=== PATIENT | male | born 1935 | race Caucasian/White ===

== ENCOUNTER → 2023-11-02 09:57 | Outpatient (REF) | payer OTHER, SELFPAY | LOC: HWRAD 09:57 | PROVIDERS: ATTENDING PHYSICIAN Family Medicine | DX: R79.89 Other specified abnormal findings of blood chemistry (principal) | CPT/HCPCS: 76700 ==

== ENCOUNTER 2024-02-15 21:57 | Inpatient (IN) | payer OTHER, SELFPAY ==
[2024-02-15 18:33] VITALS: BP 178/88
[2024-02-15 19:08] LABS: % Basophils 0.8 % (0-2); % Eosinophils 1.8 % (0-6); % Immature Granulocytes 0.2 % (0-0.5); % Lymphocytes 20.9 % (20.5-51.1); % Monocytes 9.5 % (1.7-9.3); % Neutrophils 66.8 % (42.2-75.2); Absolute Basophils 0.1 10^3/uL (0-0.2); Absolute Eosinophils 0.1 10^3/uL (0-0.7); Absolute Lymphocytes 1.3 10^3/uL (1.2-3.4); Absolute Monocytes 0.6 10^3/uL (0.1-0.6); Hematocrit 38.2 % (39.0-52.0); Hemoglobin 12.8 g/dL (13.0-18.0); Mean Corp Hgb Conc. 33.5 g/dL (33.0-37.0); Mean Corpuscular Hgb 33.2 pg (27.0-31.0); Mean Corpuscular Volume 99.2 fL (80.0-94.0); Mean Platelet Volume 10.4 fL (7.4-10.4); Nucleated Red Blood Cells % 0 % (-); Platelet Count 134 10^3/uL (130-400); Red Blood Cell Count 3.85 10^6/uL (4.70-6.10); Red Cell Dist. Width 13.8 % (11.5-14.5)
[2024-02-15 19:10] LABS: INR 1.24; PT 16.1 Sec (11.4-14.6)
[2024-02-15 19:19] LABS: ALT (SGPT) 79 U/L (0-50); AST (SGOT) 40 U/L (17-59); Albumin 4.1 g/dl (3.5-5.0); Alkaline Phosphatase 89 U/L (38-126); Blood Urea Nitrogen 37 mg/dl (9-20); Calcium 9.1 mg/dl (8.4-10.2); Carbon Dioxide 20 mmol/L (22-30); Chloride 107 mmol/L (98-107); Glucose 102 mg/dl (70-99); Potassium 4.3 mmol/L (3.5-5.1); Sodium 140 mmol/L (135-145); Total Bilirubin 0.8 mg/dl (0.2-1.3); Total Protein 6.6 g/dl (6.3-8.2); eGFR 36.21
[2024-02-15 19:25] LABS: NT-proBNP 3420 pg/ml; Troponin I 0.023 ng/ml
[2024-02-15 19:44] VITALS: BP 163/71; BMI 30.6
[2024-02-15 20:00] VITALS: BP 175/82
--- NOTE | 2024-02-15 20:20 | ED.GENMED ---
History of Present Illness
General
Chief Complaint: Breathing Problem
Source: patient
Exam Limitations: none
Time Seen by Provider: 02/15/24 19:21
History of Present Illness
History of Present Illness:
This is a 88 year old male that comes in with c/o increased weight gain and SOB. States that he went to the PCP today as he had gained 15 pounds of fluid. States that he started to go up on Thursday or . Thursday they called the PCP and today
he went to see the PCP. Patient was told to come to the ER for further evaluation. Staets that he is SOB and that his legs are swollen to his thighs. Denies any fever, chills, chest pain, abd pain, nausea, vomiting, diarrhea, headache, dizziness,
urinary burning.
Past History
Past History
ED Past Medical History: Arrthythmia (Atrial fib), HTN, Hypercholesterolemia, IDDM and Hypothyroidism
ED Past Surgical History: Cardiac (Pacemaker, 2 stents) and Cholecystectomy
Social History
Tobacco: Non-smoker
Alcohol: None
Personal:
Living: with family
Review of Systems
Review of Systems
All Other Systems: ROS reviewed and negative except as documented in HPI and ROS
Constitutional: Reports no symptoms; Denies fever or chills
EENT: Reports no symptoms
Respiratory: Reports trouble breathing; Denies cough
Cardiac: Reports no symptoms; Denies chest pain
ABD/GI: Reports no symptoms; Denies abdominal pain, nausea, vomiting or diarrhea
: Reports no symptoms; Denies dysuria, frequency or urgency
Musculoskeletal: Reports edema (Bilateral legs )
Skin: Reports no symptoms
Neurological: Reports no symptoms; Denies dizzy or headache
Psychiatric: Reports no symptoms
Phy Exam
General Physical Exam
General Presentation: no apparent distress
General age: appears stated age
General Skin: warm and dry
General Habitus: elderly
General Mental: alert
General Hydration: dry mucous membranes
ENT Exam
ENT Exam: TM's normal, pharynx normal and neck supple
Eye Exam
Eye Exam: EOMI
Cardiovascular Exam
Cardiovascular Exam: normal peripheral pulses and pacemaker
Pulmonary Exam
Pulmonary Exam: no respiratory distress, chest non tender, no rhonchi, no wheezing, no cough and other (Very fine rales at bases)
Gastrointestinal Exam
Gastrointestinal Exam: normal bowel sounds, non tender, soft, no organomegaly, no pulsatile mass and non distended
Musculoskeletal Exam
Musculoskeletal Exam: full ROM and edema (Pitting edema +2 from feet into the thighs)
Skin Exam
Skin Exam: normal color, warm/dry and no petechia
Psychiatric Exam
Psychiatric Exam: normal mood/affect
Scores
Heart Failure Risk
Heart Failure Risk Score: Yes
History of Stroke or TIA: No
History of intubation for respiratory distress: No
Heart rate on ED arrival >/= 110: No
SaO2 <90% on arrival on room air: No
HR >/=110 during 3min walk test (or too ill to perform test): Yes
ECG has acute ischemic changes: No
Urea >/=12mmol/L (BUN 33.6mg/dL): Yes
Serum CO2>/=35mmol/L: No
Troponin I or T elevated to [place] Level (0.4mg/dL): No
NT-proBNP >/=5,000ng/L (5,000pg/ml): No
HF Risk Score: 3
Admission Status: HIGH RISK 15.9% Consider SNF treatment or admission to hospital
Course
Orders/Labs/Results
Orders:
Orders
02/15/24 18:42
Electrocardiogram (*1) Urgent
Reason for Study: Shortness of Breath
EKG- Treatment ONCE
CXR2 [CR Chest - 2 Views ] Urgent
Comment:
Reason For Exam: sob
02/15/24 18:51
Complete Blood Count/With Diff Urgent
Comprehensive Metabolic Panel Urgent
NT-proBNP Urgent
PT/INR [Prothrombin Time] Urgent
Troponin I Urgent
02/15/24 20:29
Furosemide [Lasix] 40 mg IV NOW STA
Abnormal Lab Results
02/15/24
18:51
RBC 3.85 L 10^6/uL
(4.70-6.10)
Hgb 12.8 L g/dL
(13.0-18.0)
Hct 38.2 L %
(39.0-52.0)
MCV 99.2 H fL
(80.0-94.0)
MCH 33.2 H pg
(27.0-31.0)
Monocytes % 9.5 H %
(1.7-9.3)
PT 16.1 H Sec
(11.4-14.6)
Carbon Dioxide 20 L mmol/L
(22-30)
BUN 37 H mg/dl
(9-20)
Creatinine 1.8 H mg/dL
(0.7-1.3)
Glucose 102 H mg/dl
(70-99)
ALT 79 H U/L
(0-50)
02/15/24 18:51
02/15/24 18:51
H/H slightly low. Aemia, PT 16.1 with INR 1.24, Carbon dioxide slightly low. Chronic renal insufficiency according to patient, Glucose nonfasting, ALT elevation. Troponin 0.023, Pro-BNP 3420 (no other labs for compare with)
Vital Signs
Initial and Last Documented VS:
Initial Vital Signs
Temp Pulse Resp BP Pulse Ox
98.0 F 69 16 178/88 98
02/15/24 18:33 02/15/24 18:33 02/15/24 18:33 02/15/24 18:33 02/15/24 18:33
Last Documented Vital Signs
Temp Pulse Resp BP Pulse Ox
98.0 F 82 15 175/82 96
02/15/24 18:33 02/15/24 20:00 02/15/24 20:00 02/15/24 20:00 02/15/24 20:00
MDM/Problems Addressed
Differential Diagnosis Includes:
CHF
MDM/Problems Addressed:
This is a 88 year old male that comes in with c/o increased weight gain of 15 pounds with bilateral leg swelling. States that the PCP also heard rales and sent him in for further evaluation.
will get labs, chest x-ray
Back into see patient. Explained that he would be admitted. Explained that his chest X-ray shows extra fluid on the lungs with pleural effusions and with his bilateral leg edema, will admit patient for further treatment. Hospitalist notified.
Chronic conditions affecting care: CAD
Acute Exacerbation and/or Progression of Chronic Illness: CAD
*Radiology
Radiology exam reviewed: radiology read reviewed (Chest-Small to moderate-sized right and small left pleural effusions with adjacent compressive subsegmental atelectasis in the basilar segments of both lower lobes. Mild interstitial cardiogenic
pulmonary edema. Left-sided cardiac pacemaker in place)
*EKG
Interpreted by ED Provider?: Yes
Heart Rate: 78
Rate: normal
Rhythm: ventricular paced
*Vp Director Of Creative Strategy Interpretation
Rate: normal
Heart Rate: 76
Rhythm: ventricular paced and av sequential
*Critical Care Note
Total Time (30-74mins, 75-104mins- exclusive of procedures): Not Applicable
ED Attending Note
-
Portions of this chart may have been created with voice recognition software.� Occasional wrong word or��sound alike� substitutions may have occurred due to the inherent limitations of voice recognition software.
Discharge Plan
Departure
Patient Disposition: Admit
Date of Disposition: 02/15/24
Time of Disposition: 20:34
Admit to: Telemetry
Presentation/result/management discussed w/ accepting MD/DO: Hospitalist
Patient with high blood pressure during this ER visit?: Yes
Condition: Good
Covid-19: Not Applicable
Discharge Problem:
Pulmonary edema, Bilateral pleural effusion, Bilateral lower extremity edema
Prescriptions:
No Action
aspirin 325 mg Tablet
325 mg PO DAILY
allopurinol 100 mg Tablet
100 mg PO DAILY
tamsulosin 0.4 mg Capsule
0.4 mg PO HS
ferrous sulfate 325 mg (65 mg iron) Tablet
325 mg PO DAILY
levothyroxine [Synthroid] 150 mcg Tablet
150 mcg PO DAILY
calcitriol 0.25 mcg Capsule
0.25 mcg PO DAILY
finasteride 5 mg Tablet
5 mg PO DAILY
rosuvastatin 10 mg Tablet
10 mg PO DAILY
insulin glargine [Lantus Solostar U-100 Insulin] 100 unit/mL (3 mL) Insulin Pen
10 unit SC QPM
Vitamin D3 100 mcg (4,000 unit) Capsule
500 unit PO DAILY
Referrals:
UNKNOWN - PT DOES,NOT KNOW [Family Provider] -
Interventions
Interventions:
*Risk Screen - Suicide Last Done: 02/15/24 18:33
*General Assessment Last Done: 02/15/24 19:44
*Neglect/Abuse Screening Last Done: 02/15/24 18:33
ED- Fall Risk Assessment Last Done: 02/15/24 19:45
*ED COVID-19 Vaccine History Last Done: 02/15/24 19:44
ED- Cardiac Assessment Last Done: 02/15/24 19:45
ED- Pulmonary Assessment Last Done: 02/15/24 19:45
Discharge Date and Time
Print Language: JAPANESE
[2024-02-15 20:37] VITALS: BMI 30.4
--- NOTE | 2024-02-15 20:38 | HPS.HSE ---
Family Physician
-
Family Physician: NOT KNOW UNKNOWN - PT DOES
Chief Complaint
-
sob, weight gain, LE edema
History of Present Illness
88 year old male with PMH for hypothyroidism, BPH,HLD, type 2 Dm, iron def anemia, GOUT, CKD presented to us with sob for past 4-5 days. he gained 15-20lbs in 5 days. stated worsening LE edema.Denies any fever, chills, chest pain, abd pain, nausea,
vomiting, diarrhea, headache, dizziness, urinary burning.
In ER noted elevated BNP, chest x ray with small to moderate-sized right and small left pleural effusions with adjacent compressive subsegmental atelectasis in the basilar segments of both lower lobes.
2. Mild interstitial cardiogenic pulmonary edema.
received Lasix in ER. admitting for further management.
Medical History
Past Medical History
Past Medical History: Reports Other
Additional Past Medical History:
hypothyroidism
htn
hld
type 2 Dm
sick sinus syndrome
Past Surgical History: Reports Other
Additional Past Surgical History:
cholecystectomy
tonsillectomy
Social History
Tobacco: Non-smoker
Alcohol: None
Drug: None
Personal:
Living: With Family
Family History
Family History: Not pertinent
Allergies / Home Medications
Allergies reflects when Allergies were last updated in [employer].
Home Medications with original date entered in [employer]
Allergy/Medication List:
Allergies
Allergy/AdvReac Type Severity Reaction Status Date / Time
iodine Allergy Hives Verified 02/15/24 18:41
Sulfa (Sulfonamide Allergy Rash Verified 02/15/24 18:41
Antibiotics)
tetracycline Allergy Hives Verified 02/15/24 18:41
Home Medications
allopurinol 100 mg tablet 100 mg PO DAILY 02/15/24
aspirin 325 mg tablet 325 mg PO DAILY 02/15/24
calcitriol 0.25 mcg capsule 0.25 mcg PO DAILY 02/15/24
cholecalciferol (vitamin D3) 100 mcg (4,000 unit) capsule 500 unit PO DAILY 02/15/24
ferrous sulfate 325 mg (65 mg iron) tablet 325 mg PO DAILY 02/15/24
finasteride 5 mg tablet 5 mg PO DAILY 02/15/24
insulin glargine 100 unit/mL (3 mL) subcutaneous pen (Lantus Solostar U-100 Insulin) 10 unit SC QPM 02/15/24
levothyroxine 150 mcg tablet (Synthroid) 150 mcg PO DAILY 02/15/24
rosuvastatin 10 mg tablet 10 mg PO DAILY 02/15/24
tamsulosin 0.4 mg capsule 0.4 mg PO HS 02/15/24
Review of Systems
-
Constitutional: Reports Weight Gain
EENT: Reports No Symptoms
Respiratory: Reports Trouble Breathing
Cardiac: Reports No Symptoms
Abdomen/GI: Reports No Symptoms
: Reports No Symptoms
Musculoskeletal: Reports Edema
Skin: Reports No Symptoms
Neurological: Reports No Symptoms
Endocrine: Reports No Symptoms
Hematologic/Lymphatic: Reports No Symptoms
Psych: Reports No Symptoms
Physical Exam
Vital Signs
Vital Signs
Temp Pulse Resp BP Pulse Ox
98.0 F 82 15 175/82 96
02/15/24 18:33 02/15/24 20:00 02/15/24 20:00 02/15/24 20:00 02/15/24 20:00
Physical Exam
General: Well Developed, Well Nourished and No Apparent Distress
HEENT: NormoCephalic, Moist mucous membranes and Atraumatic
Respiratory: Clear and Decreased Breath Sounds
Cardiac: S1/S2 and Regular Rhythm; No Murmur or Rub
GI: Soft, Non Tender, Non Distended and Normal Bowel Sounds; No Organomegaly
Rectal: Deferred by Provider
Musculoskeletal: No Clubbing, No Cyanosis and Other (b/l Le edema)
Skin: No Rash
Neuro: AO x 3 and Nonfocal/grossly intact
Psych: Calm
Laboratory Results
-
02/15/24 18:51
02/15/24 18:51
Laboratory Results
PT 16.1 Sec (11.4-14.6) H 02/15/24 18:51
INR 1.24 02/15/24 18:51
Total Bilirubin 0.8 mg/dl (0.2-1.3) 02/15/24 18:51
AST 40 U/L (17-59) 02/15/24 18:51
ALT 79 U/L (0-50) H 02/15/24 18:51
Alkaline Phosphatase 89 U/L (38-126) 02/15/24 18:51
Troponin I 0.023 ng/ml 02/15/24 18:51
Data Reviewed
-
Diagnostic Radiology: Report Reviewed by me
Lab Data: Labs Reviewed by me
Impression/Plan
-
#new onset CHF
-BNP 3420
-trop 0.023
-chest x ray with Small to moderate-sized right and small left pleural effusions with adjacent compressive subsegmental atelectasis in the basilar segments of both lower lobes. Mild interstitial cardiogenic pulmonary edema. Left-sided cardiac
pacemaker in place.
-iv Lasix daily
-obtain ECHO
-strict I &O
-daily weight
-cardiology consulted
#HTn
-metoprolol added
#acute kidney injury likely chronic
-cr 1.8
-calcitriol continued
#GOUT
-allopurinol continued
#iron def anemia
-ferrous sulfate continued
#type 2 Dm
-sliding scale
-cho diet
-Lantus 5 units continued
#hypothyroidism
-levothyroxine ocntinued
#HLD
-statin continued
#BPH
-finasteride and Flomax continued
#DVT prophylaxis
-heparin sq
#CODE status
-full code
[2024-02-15] MEDS: LASIX 40 MG IV (20:46)
[2024-02-15 21:00] VITALS: BP 161/78
--- NOTE | 2024-02-15 21:19 | W.PN.UPDATE ---
Update Note
Progress Note Update
This note serves as an addendum to the H&P by decorator hand ISSAC WORLEY
HPI
88M HX Prx A Fib HTN, Hypercholesterolemia, IDDM and Hypothyroidism, PPM implant seen at ER
- noted 15 lbs wt gain and David swelling
- associated with SoB
- PCP suggest ER evalaution
ROS:
Denies any fever, chills, chest pain, abd pain, nausea, vomiting, diarrhea, headache, dizziness, urinary burning.
PHX; as above
Reviewed VS: Hypertensive 175/80
PE
Gen: NAD
HEENT: supple
Neck: prominent JVD
Lungs: Bibasilar fine rales
Cor: RRR
Abdomen: soft benign
INTERNATIONAL LOGISTICS COORDINATOR: AAO3 , NFND
MS: b/l David edema
Psych: nl mood and affect
Data
02/15/24
18:51
Hgb 12.8 L
MCV 99.2 H
Potassium 4.3
Carbon Dioxide 20 L
BUN 37 H
Creatinine 1.8 H
eGFR 36.21
Troponin I 0.023
Dxr-D-Wgztdwdcclv Pept 3420
CXR:
1. Small to moderate-sized right and small left pleural effusions with adjacent compressive subsegmental atelectasis in the basilar segments of both lower lobes.
2. Mild interstitial cardiogenic pulmonary edema.
3. Left-sided cardiac pacemaker in place.
EKG
Ventricular-paced rhythm
ABNORMAL ECG
NO PREVIOUS ECGS AVAILABLE
Last hospitalist admission:
ASSESSMENT & PLAN
Weinberg with b/l David edema and significant Wt hgain
New onset Acute HF type unknown
suspect CHF - chr diastolic HF vs. mixed CHF
Volume overload complicated by b/l pleural effusion
- S/p IV lasix 40 at ER - cont IV 40 daily
- Daily IOs, daily Wi
- daily BMP while diuresing
- ECHO in AM
- CBC card consult
Suspect volume mediated hypertension
HX essential HTN : not on any BP meds in the listed
- observe BP with diuresis
- Metoprolol tartrate 12.5 q8h - hold for SBP < 110, HR < 55
PPM implant
Renal insufficiency - acute vs acute on chronic
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
- F/U Cr in response to IV Lasix
Relative hypoglycemia with BG 102 suspect due to drop in GFR with prolonged half life of Lantus
IDDM
- add ISS low
- De escalade Lantus to 5 Unit HS
Hypothyroid
- cont. LT4
DVT Px: SQH
Full code
IP TLM
[2024-02-15 22:22] LABS: Glucose - Point of Care 111 mg/dl (70-99)
[2024-02-15 22:30] VITALS: BMI 29.3
[2024-02-15] MEDS: LANTUS 0.05 UNITS SC (22:33)
[2024-02-15] MEDS: LOPRESSOR 12.5 MG PO (22:51)
[2024-02-15] MEDS: FLOMAX 0.4 MG PO (22:51)
[2024-02-15 23:15] VITALS: BP 175/89
[2024-02-15 23:18] VITALS: BMI 29.3
[2024-02-16] VITALS (7 sets, daily range): BP systolic 129–160; BP diastolic 66–78; O2SAT 97; BMI 28.2
--- NOTE | 2024-02-16 01:22 | PTCARENOTE ---
Received pt from ED @ 2315. Pt AAOx3, VSS. Pt ambulatory in room. Oriented to room, call [place] and plan of care.
[2024-02-16] MEDS: SYNTHROID 150 MCG PO (06:01)
[2024-02-16] MEDS: LOPRESSOR 12.5 MG PO ×2 (06:01→08:56)
--- NOTE | 2024-02-16 07:40 | CON.CAR ---
Addendum entered and electronically signed by Sunil Proctor MD 02/16/24 09:35:
I saw and examined the patient.
The PURCHASING BUYER's note was reviewed and I agree with the note.
Comment: 88-year-old male (known to Dr. Proctor, his primary calibration specialist), with CAD (prior PCI, location unknown), paroxysmal atrial fibrillation, SSS s/p PPM, hypertension, hypothyroidism, and dyslipidemia who presented to the emergency
department with a chief complaint of shortness of breath. He endorsed associated weight gain and lower extremity edema.
He has 20 lb weight gain and symptoms of CHF.
- IV diuresis bid
Original Note:
Consultation
Consultation Request
Date/Time Consultation Requested: 02/15/2024 22:05
Date/Time Consultation Performed: 02/16/2024 07:40
Requesting Provider: TODD Yoo
Performing Provider: TODD Leija for Dr. Proctor
Reason for Consultation: Acute HFpEF
Medical History
-
Chief Complaint: Shortness of breath
History of Present Illness:
Victor Hugo Hardwick is an 88-year-old male (known to Dr. Proctor, his primary calibration specialist), with CAD (prior PCI, location unknown), paroxysmal atrial fibrillation, SSS s/p PPM, hypertension, hypothyroidism, and dyslipidemia who presented to the
emergency department with a chief complaint of shortness of breath. He endorsed associated weight gain and lower extremity edema. Chest x-ray consistent with cardiogenic pulmonary edema. He endorses weight gain with worsening lower extremity
edema over the past 7 days. He believes he has gained anywhere from 10 to 15 pounds. He denies dietary changes. He endorses medication adherence. He is on apixaban 2.5 mg twice daily at home. He denies missed doses and abnormal bleeding. He is
having no chest pain. At home, he has some CHEN while he is making dinner for his but not at rest.
Past Medical History
Past Medical History: Arrhythmias (paroxysmal atrial fibrillation, SSS S/P PPM), CAD, HTN, Hypothyroidism and IDDM
Past Surgical History: Cholecystectomy and Tonsilectomy
Social History
Tobacco: Non-Smoker
Alcohol: None
Drug: None
Personal:
Living: With Family
Employment: Retired
Family History
Family History: Reviewed & Not Pertinent
Allergies / Home Medications
Allergy/AdvReac Type Severity Reaction Status Date / Time
iodine Allergy Hives Verified 02/15/24 18:41
Sulfa (Sulfonamide Allergy Rash Verified 02/15/24 18:41
Antibiotics)
tetracycline Allergy Hives Verified 02/15/24 18:41
�Medication �Instructions �Recorded �Confirmed �Type
allopurinol 100 mg tablet 100 mg PO DAILY 02/15/24 02/15/24 History
aspirin 325 mg tablet 325 mg PO DAILY 02/15/24 02/15/24 History
calcitriol 0.25 mcg capsule 0.25 mcg PO DAILY 02/15/24 02/15/24 History
cholecalciferol (vitamin D3) 100 500 unit PO DAILY 02/15/24 02/15/24 History
mcg (4,000 unit) capsule
ferrous sulfate 325 mg (65 mg 325 mg PO DAILY 02/15/24 02/15/24 History
iron) tablet
finasteride 5 mg tablet 5 mg PO DAILY 02/15/24 02/15/24 History
insulin glargine 100 unit/mL (3 10 unit SC QPM 02/15/24 02/15/24 History
mL) subcutaneous pen (Lantus
Solostar U-100 Insulin)
levothyroxine 150 mcg tablet 150 mcg PO DAILY 02/15/24 02/15/24 History
(Synthroid)
rosuvastatin 10 mg tablet 10 mg PO DAILY 02/15/24 02/15/24 History
tamsulosin 0.4 mg capsule 0.4 mg PO HS 02/15/24 02/15/24 History
Review of Systems
-
History Source: Patient
All other systems: Negative unless noted
Constitutional: Weight Gain
EENT: No Symptoms
Respiratory: Trouble Breathing
Cardiac: No Symptoms
Abdomen/GI: No Symptoms
: No Symptoms
Musculoskeletal: Edema
Skin: No Symptoms
Neurological: No Symptoms
Endocrine: No Symptoms
Hematologic/Lymphatic: No Symptoms
Physical Exam
Vital Signs
Temp Pulse Resp BP Pulse Ox
98.6 F 74 18 150/72 98
02/16/24 03:20 02/16/24 03:20 02/16/24 03:20 02/16/24 03:20 02/16/24 03:20
Lab Results
Troponin I 0.023 ng/ml 02/15/24 18:51
Iri-H-Qtecyenbwoy Pept 3420 pg/ml 02/15/24 18:51
Physical Exam
General: Well Developed, Well Nourished, No Apparent Distress and Comfortable
HEENT: Normocephalic, Anicteric and Moist Mucous Membranes
Respiratory: Crackles and Non Labored Respirations
Cardiac: S1/S2, Irregular Rhythm and Peripheral Edema (+2-3 pitting B/L LE edema)
Breast: Deferred by me
GI: Soft, Non Tender, Non Distended and Normal Bowel Sounds
Rectal: Deferred by Provider
Genito-urinary: No Costovertebral Tender
Musculoskeletal: No Clubbing and No Cyanosis
Skin: Warm and Dry
Neuro: AO x 3
Hematologic/Lymphatic: No Lymphadenopathy
Psych: Calm
Impression / Plan
-
BACKGROUND: 88M with CAD (prior PCI, location unknown), paroxysmal atrial fibrillation, SSS s/p PPM, hypertension, hypothyroidism, and dyslipidemia who presented to the emergency department with a chief complaint of shortness of breath.
Armature Winder Repair Helper: Dr. Proctor
IMPRESSION/PLAN:
Acute heart failure exacerbation, new diagnosis, presumed HFpEF
-Shortness of breath with weight gain, elevated proBNP, and pulmonary edema
-Diuresis with furosemide 40 mg IV twice daily, this requires intensive monitoring
-Case management to peck SGLT2, consider MIGNON/ARB if renal function allows
-Trend daily weight, I/O, and BMP with diuresis
-Echocardiogram today
-Heart failure education
Paroxysmal atrial fibrillation, now persistent
-Rates elevated, resume home metoprolol tartrate 25mg BID, may need to consider metoprolol succinate
-Oral Anticoagulation: Apixaban 2.5 mg twice daily (age 88, creatinine >1.5), he denies abnormal bleeding
-[id number]: score 6 (Heart failure, HTN, age 75 or more, Diabetes Mellitus, Vascular disease)
CAD
-Stable without chest pain
-Aspirin stopped, he does not need aspirin and apixaban
-Prior PCI, location of stent unknown
Chronic kidney disease, follow with diuresis
SSS s/p [place] PPM, stable on most recent device check
Hypothyroidism, on levothyroxine
Type II DM, controlled, Hgba1c 5.6% this month
Dyslipidemia, fasting lipid panel pending, continue rosuvastatin
SUBJECTIVE:
No shortness of breath at rest. No orthopnea currently.
Of note, he was 83 kg at his office visit with his PCP in November.
Data Reviewed
-
EKG: Report Reviewed by me (V paced rhythm )
Radiology: Report Reviewed by me (CXR: Small to moderate-sized right and small left pleural effusions with adjacent compressive subsegmental atelectasis in the basilar segments of both lower lobes. Mild interstitial cardiogenic pulmonary edema.)
[2024-02-16 08:03] LABS: Hematocrit 34.7 % (39.0-52.0); Hemoglobin 11.8 g/dL (13.0-18.0); Mean Corpuscular Hgb 34.6 pg (27.0-31.0); Mean Corpuscular Volume 101.8 fL (80.0-94.0); Mean Platelet Volume 10.7 fL (7.4-10.4); Platelet Count 119 10^3/uL (130-400); Red Blood Cell Count 3.41 10^6/uL (4.70-6.10); Red Cell Dist. Width 13.6 % (11.5-14.5); White Blood Cell Count 5.5 10^3/uL (4.8-10.8)
[2024-02-16 08:39] LABS: ALT (SGPT) 59 U/L (0-50); AST (SGOT) 30 U/L (17-59); Albumin 3.4 g/dl (3.5-5.0); Alkaline Phosphatase 81 U/L (38-126); Blood Urea Nitrogen 38 mg/dl (9-20); Calcium 8.8 mg/dl (8.4-10.2); Carbon Dioxide 20 mmol/L (22-30); Chloride 109 mmol/L (98-107); Direct Bilirubin 0.2 mg/dl (0.0-0.4); Estimated Creatinine Clearance 29 ml/min; Glucose 93 mg/dl (70-99); HDL Cholesterol 44 mg/dl; LDL Cholesterol, Calculated 12 mg/dl; Magnesium 1.8 mg/dl (1.6-2.3); Potassium 3.6 mmol/L (3.5-5.1); Sodium 140 mmol/L (135-145); Total Bilirubin 0.7 mg/dl (0.2-1.3); Total Cholesterol 68 mg/dl (50-199); Total Protein 5.8 g/dl (6.3-8.2); Triglyceride 64 mg/dl (10-149); Very Low Density Lipoprotein 12 mg/dl (0-30); eGFR 36.21
[2024-02-16 08:50] LABS: Glucose - Point of Care 109 mg/dl (70-99)
[2024-02-16] MEDS: NOVOLOG FLEXPEN-LOW RESISTANCE SC ×2 (08:51→12:36)
[2024-02-16 08:55] LABS: Glycohemoglobin (HgbA1c) 5.4 % (4.0-5.6)
[2024-02-16] MEDS: CRESTOR 10 MG PO (08:56)
[2024-02-16] MEDS: ELIQUIS 2.5 MG PO ×2 (08:56→20:31)
[2024-02-16] MEDS: PROSCAR 5 MG PO (08:57)
[2024-02-16 09:07] LABS: TSH Reflex To Free T4 4.57 uIU/ml (0.47-4.68)
[2024-02-16] MEDS: LASIX 40 MG IV ×2 (10:44→16:56)
[2024-02-16] MEDS: FEOSOL 325 MG PO (10:44)
[2024-02-16] MEDS: ZYLOPRIM 100 MG PO (10:45)
[2024-02-16] MEDS: VITAMIN D3 (cholecalciferol) 125 MCG PO (10:45)
[2024-02-16] MEDS: ROCALTROL 0.25 MCG PO (10:45)
[2024-02-16 11:56] LABS: Glucose - Point of Care 134 mg/dl (70-99)
--- NOTE | 2024-02-16 13:25 | W.PN.HOSP.TC ---
Addendum entered and electronically signed by Dago Garcia MD 02/16/24 18:06:
tried to call daughter . Went to message
spoke to early
Original Note:
Today's Communication/Plan
-
Diuresis
Rate control
Assessment / Plan
Assessment / Plan
88-year-old male came to the hospital with shortness of breath and weight gain and lower extremity edema. They moved to [place] in March from [place]. Patient has not been to this hospital before.
Chest x-ray reviewed by me-bilateral pleural effusions right more than left. Pulmonary edema
EKG reviewed by me-paced rhythm
ECHO 02/15/24-Normal LV size and function with no WMA, EF 55-60%. Basal septal hypertrophy. Normal RV size and function. Mild . Moderate AI. PA pressure 28 mmHg. Small pericardial effusion without tamponade.
CVS: S1-S2 irregular, DM at aa
Chest: CTA B/L
Abdomen: Soft, NT / Bowel sounds present
Extremities: B/L Pedal edema
# Acute heart failure with preserved ejection fraction
Diuresis with Lasix 40 mg IV twice daily with monitoring of weight and intake output charting
Goal-directed medical therapy to be started as appropriate
Echo as above
Cardiology has been consulted and following
# Atrial fibrillation-persistent
Normal TSH
Continue metoprolol 25 twice daily and Eliquis
# Coronary artery disease-aspirin stopped
Continue beta-blockers, rosuvastatin
# CKD-stage unclear-likely stage III follow creatinine with diuresis-continue calcitriol
# History of sick sinus syndrome and [place] pacemaker placement
# Elevated ALT-likely secondary to hepatic congestion-follow with diuresis
# Hypothyroidism-continue Synthroid
# Diabetes-hemoglobin A1c 5.4-continue Lantus 5 units (instead of 10 PORT PATROL OFFICER) and sliding scale coverage
# Prostate disease-continue Flomax and finasteride
# History of iron deficiency anemia-continue iron sulfate
# Hyperlipidemia-continues rosuvastatin
# Gout-continue allopurinol
# DVT prophylaxis-Eliquis
# Full code
Spoke to who says to call daughter from now on as she has difficulty hearing and also daughter is a nurse. could not give me daughters number when I was on the phone.
Anticipated Discharge: > 48 hours
Subjective/Interval History
-
Date of Service: February 16, 2024
Objective Data
-
Labs:
Laboratory Results
02/16/24
07:36
WBC 5.5
Hgb 11.8 L
Hct 34.7 L
Plt Count 119 L
Sodium 140
Potassium 3.6
Chloride 109 H
Carbon Dioxide 20 L
BUN 38 H
Creatinine 1.8 H
Glucose 93
Calcium 8.8
Total Bilirubin 0.7
AST 30
ALT 59 H
Alkaline Phosphatase 81
Vital Signs:
Vital Signs
Temp Pulse Resp BP Pulse Ox
98.1 F 97 18 155/78 96
02/16/24 12:15 02/16/24 12:15 02/16/24 12:15 02/16/24 12:15 02/16/24 12:15
I&O
02/15/24 02/16/24 02/17/24
06:59 06:59 06:59
Intake Total 120 / 120
Output Total 3800 / 3800
Balance -3680 / -3680
--- NOTE | 2024-02-16 16:03 | CM ---
Pt seen bedside. Pt lives w/ spouse and daughter in a [facility]- no steps to enter.
Independent, denies DME use for daily functioning
Pt states he was at a SNF in [place] in the past
Had [facility]/PT in the past
Address, point of contact and insurance verified
PCP: Dr. Marcelino Santacruz
Pharmacy: [facility]
Pt stated his daughter can be listed as a secondary contact
Tony Mena
[phone]
PT/OT identified no skilled needs at this time
Per pt, family will transport at d/c
Plan: Home no needs anticipated
[2024-02-16 16:56] LABS: Glucose - Point of Care 174 mg/dl (70-99)
[2024-02-16] MEDS: LANTUS 0.05 UNITS SC (18:31)
[2024-02-16] MEDS: NOVOLOG FLEXPEN-LOW RESISTANCE 1 UNITS SC (18:32)
[2024-02-16] MEDS: LOPRESSOR 25 MG PO (20:31)
[2024-02-16 21:20] LABS: Glucose - Point of Care 125 mg/dl (70-99)
[2024-02-16] MEDS: FLOMAX 0.4 MG PO (21:34)
[2024-02-17 03:53] VITALS: BP 125/73
[2024-02-17 06:00] VITALS: BMI 26.5
[2024-02-17] MEDS: SYNTHROID 150 MCG PO (06:17)
[2024-02-17 07:20] VITALS: BP 120/70
[2024-02-17 07:33] LABS: Glucose - Point of Care 104 mg/dl (70-99)
[2024-02-17] MEDS: NOVOLOG FLEXPEN-LOW RESISTANCE SC (08:20)
[2024-02-17] MEDS: CRESTOR 10 MG PO (08:23)
[2024-02-17] MEDS: ELIQUIS 2.5 MG PO (08:23)
[2024-02-17] MEDS: FEOSOL 325 MG PO (08:23)
[2024-02-17] MEDS: LASIX 40 MG IV (08:32)
[2024-02-17] MEDS: PROSCAR 5 MG PO (08:34)
[2024-02-17] MEDS: LOPRESSOR 25 MG PO (08:34)
[2024-02-17] MEDS: ROCALTROL 0.25 MCG PO (08:34)
[2024-02-17] MEDS: ZYLOPRIM 100 MG PO (08:35)
[2024-02-17] MEDS: VITAMIN D3 (cholecalciferol) 125 MCG PO (08:35)
[2024-02-17 09:09] LABS: Blood Urea Nitrogen 40 mg/dl (9-20); Calcium 9.2 mg/dl (8.4-10.2); Carbon Dioxide 21 mmol/L (22-30); Chloride 103 mmol/L (98-107); Estimated Creatinine Clearance 28 ml/min; Glucose 103 mg/dl (70-99); Magnesium 1.8 mg/dl (1.6-2.3); Potassium 3.6 mmol/L (3.5-5.1); Sodium 139 mmol/L (135-145); eGFR 33.93
--- NOTE | 2024-02-17 09:45 | W.PN.CD ---
Today's Communication / Plan
-
Stop IV lasix
Start MWF dosing of lasix 40 mg
Switch to Metop XL 25 bid
We will sign off and arrange follow up. Please call with questions/concerns.
Impression / Plan
-
BACKGROUND: 88M with CAD (prior PCI, location unknown), paroxysmal atrial fibrillation, SSS s/p PPM, hypertension, hypothyroidism, and dyslipidemia who presented to the emergency department with a chief complaint of shortness of breath.
Research Librarian: Dr. Proctor
IMPRESSION/PLAN:
Acute heart failure exacerbation HFpEF
-Weight now down 20 lbs to 179
- Switch to lasix 40 mg MWF
- possible SGTL2i as outpatient
Paroxysmal atrial fibrillation, now persistent
-switch to Metop XL 25 bid
-Oral Anticoagulation: Apixaban 2.5 mg twice daily (age 88, creatinine >1.5), he denies abnormal bleeding
-[id number]: score 6 (Heart failure, HTN, age 75 or more, Diabetes Mellitus, Vascular disease)
CAD
-Stable without chest pain
-Aspirin stopped, he does not need aspirin and apixaban
-Prior PCI, location of stent unknown
Chronic kidney disease, follow with diuresis
SSS s/p [place] PPM, stable on most recent device check
Hypothyroidism, on levothyroxine
Type II DM, controlled, Hgba1c 5.6% this month
Dyslipidemia, fasting lipid panel pending, continue rosuvastatin
SUBJECTIVE:
Much improved no new complaints
TTE: CONCLUSIONS
Normal LV size and function with no regional wall motion abnormalities.
LVEF is 55-60% by visual estimation.
Basal septal hypertrophy.
Normal right ventricular size and function.
Mild aortic stenosis.
Moderate aortic regurgitation.
Estimated pulmonary artery pressure of 28 mmHg assuming a right atrial pressure
of 8 mmHg.
Small pericardial effusion WITHOUT evidence of tamponade.
No prior study available for comparison.
Physical Exam
Vital Signs/Labs
Vital Signs
Temp Pulse Resp BP Pulse Ox
97.9 F 78 18 120/70 94
02/17/24 07:20 02/17/24 08:32 02/17/24 07:20 02/17/24 08:32 02/17/24 07:20
02/16/24 02/17/24 02/18/24
06:59 06:59 06:59
Actual Weight 190 lb 11.2 oz 179 lb
02/17/24 06:41
PT 16.1 Sec (11.4-14.6) H 02/15/24 18:51
INR 1.24 02/15/24 18:51
Magnesium 1.8 mg/dl (1.6-2.3) 02/17/24 06:41
Triglycerides 64 mg/dl (10-149) 02/16/24 07:36
LDL Cholesterol, Calc 12 mg/dl 02/16/24 07:36
VLDL Cholesterol, Calc 12 mg/dl (0-30) 02/16/24 07:36
HDL Cholesterol 44 mg/dl 02/16/24 07:36
02/15/24
18:51
Yki-J-Airhrilukkj Pept 3420
LAB Results
02/15/24
18:51
Troponin I 0.023
Physical Exam
Constitutional: No acute distress and Comfortable
EENT: Anicteric
Cardiovascular: Rhythm/rate is irregular and Pedal edema present
Respiratory: Respiratory effort normal and Lungs clear to auscul.
GI: Soft
Neuro/Psych: AO x 3
Data Reviewed
-
Date of Service: February 17, 2024
EKG: Tracing Personally Visualized and interpreted (af)
Echo: Report Reviewed by me
Labs: Labs Reviewed by me
[2024-02-17 11:22] LABS: Hematocrit 39.8 % (39.0-52.0); Hemoglobin 13.1 g/dL (13.0-18.0); Mean Corp Hgb Conc. 32.9 g/dL (33.0-37.0); Mean Corpuscular Hgb 33.2 pg (27.0-31.0); Platelet Count 146 10^3/uL (130-400); Red Blood Cell Count 3.94 10^6/uL (4.70-6.10); Red Cell Dist. Width 13.9 % (11.5-14.5)
--- NOTE | 2024-02-17 11:49 | W.DS.TRANS ---
DC Summary - Systems Programmer
-
Discharge Instructions:
Sleep Apnea Risk Low
Discharge Diagnosis/Procedures diastolic heart failure
Diet 2 Gram Sodium,Restrict fluids to 48 oz
Activity As tolerated
Driving Restrictions As prior to admission
Bathing Restrictions None
Blood Work BMP in one week
Specialty Instructions Weigh Daily
Instructions: *[facility] Heart Failure Instructions
Stand-Alone Forms:
Changes to Home Medications: Yes
Discharge Medications:
DC Medications w/original date entered in [id number]
allopurinol 100 mg tablet 100 mg PO DAILY 02/15/24
calcitriol 0.25 mcg capsule 0.25 mcg PO DAILY 02/15/24
cholecalciferol (vitamin D3) 100 mcg (4,000 unit) capsule 500 unit PO DAILY 02/15/24
ferrous sulfate 325 mg (65 mg iron) tablet 325 mg PO DAILY 02/15/24
finasteride 5 mg tablet 5 mg PO DAILY 02/15/24
levothyroxine 150 mcg tablet (Synthroid) 150 mcg PO DAILY 02/15/24
rosuvastatin 10 mg tablet 10 mg PO DAILY 02/15/24
tamsulosin 0.4 mg capsule 0.4 mg PO HS 02/15/24
apixaban 2.5 mg tablet (Eliquis) 2.5 mg PO BID 02/17/24
insulin glargine 100 unit/mL (3 mL) subcutaneous pen (Lantus Solostar U-100 Insulin) 5 unit (0.05 mL) SC QPM #0 mL 02/17/24
metoprolol succinate 25 mg tablet,extended release 24 hr 25 mg PO BID #60 tabs 02/17/24
Home Medication Changes
Continue Eliquis 2.5mg twice a day.
You do not need to take Aspirin when taking Eliquis
You are newly started on Metoprolol 25mg XL twice a day
Decrease Lantus to 5 units in evenings - your average blood sugar is too well controlled and you are likely having low blood glucose levels.
Pending Results: No
--- NOTE | 2024-02-17 11:52 | CM ---
Chart reviewed. Pt will d/c today
Med peck check completed for medications. Hospitalist and [employer] made aware
Cont. no PT/OT skilled needs
Private transport at d/c
No CM needs identified at this time
Plan: Home no needs
[2024-02-17 11:54] VITALS: BP 114/64
[2024-02-17 12:05] LABS: Glucose - Point of Care 150 mg/dl (70-99)
[2024-02-17] MEDS: NOVOLOG FLEXPEN-LOW RESISTANCE 1 UNITS SC (12:49)
--- NOTE | 2024-02-17 13:59 | W.DCSUMMARY ---
Discharge Summary
Discharge Data
Date of Admission: 02/15/24
Date of Discharge: 02/17/24
-
Pending Results: No
Hospital Course
Discharging Physician : Dr. Liz Patrick
Disposition : Home
Primary care physician : Dr. Marcelino Santacruz
Principal Discharge diagnosis : Heart Failure preserved Ejection Fraction, Acute Exacerbation
Hospital Course :
Mr. Victor Hugo Hardwick is a 88 yo man with hx hypothyroidism, BPH, HLD, DM II, RAHUL, Gout, CKD presented to the ER with shortness of breath x 4-5 days, weight gain and lower extremity swelling. He was noted to have elevated BNP with CXR showing
bilateral pleural effusions and interstitial edema.
Patient was admitted to medicine with cardiology consulting for treatment of heart failure exacerbation. He was given IV lasix with good response and drop in weight from 93.3 kg to 81.2kg on day of discharge. TTE with LVEF 55-60%, no regional wall
motion abnormalities. He is discharged on lasix 40mg MOWEFR. Repeat BMP ordered in one week. Patient was also started on Metoprolol XL 25mg BID.
Patient is on Eliquis at home, which is continued. No need for aspirin while on Eliquis.
Patient's A1c 5.6%; his Lantus is decreased from 10 units to 5 units qhs.
Time spent on discharge was 35 minutes.
Important imaging findings :
CXR 02/15/24
IMPRESSION:
1. Small to moderate-sized right and small left pleural effusions with adjacent compressive subsegmental atelectasis in the basilar segments of both lower lobes.
2. Mild interstitial cardiogenic pulmonary edema.
3. Left-sided cardiac pacemaker in place.
TTE 02/16/24
CONCLUSIONS
Normal LV size and function with no regional wall motion abnormalities.
LVEF is 55-60% by visual estimation.
Basal septal hypertrophy.
Normal right ventricular size and function.
Mild aortic stenosis.
Moderate aortic regurgitation.
Estimated pulmonary artery pressure of 28 mmHg assuming a right atrial pressure
of 8 mmHg.
Small pericardial effusion WITHOUT evidence of tamponade.
No prior study available for comparison.
Indications:
heart failure
Procedure findings :
Discharge Plan
-
Patient Disposition: Home (Routine Discharge)
Discharge Diagnosis/Procedures: diastolic heart failure
Diet: 2 Gram Sodium and Restrict fluids to 48 oz
Activity: As tolerated
Driving Restrictions: As prior to admission
Bathing Restrictions: None
Blood Work: BMP in one week
Specialty Instructions: Weigh Daily- Call MD for wt gain/loss 3 lbs overnight/5 lbs in 1 week
Instructions: *CBC Heart Failure Instructions
Referrals:
Evi Bryson CRNP [Specified Professional Personl] - 03/08/24 3:00 pm
Sunil Proctor MD [Active] - None
Marcelino Santacruz DO [Family Provider] - in less than 1 week
Additional Discharge Medication Instructions: Continue Eliquis 2.5mg twice a day.
You are started on Lasix on Mondays, Wednesdays, Fridays
You do not need to take Aspirin when taking Eliquis
You are newly started on Metoprolol 25mg XL twice a day
Decrease Lantus to 5 units in evenings - your average blood sugar is too well controlled and you are likely having low blood glucose levels.
Prescriptions:
New
metoprolol succinate 25 mg Tablet Extended Release 24 Hr
25 mg PO BID Qty: 60 0RF
furosemide [Lasix] 40 mg tablet
40 mg PO MOWEFR Qty: 30 0RF
Continued
allopurinol 100 mg Tablet
100 mg PO DAILY
tamsulosin 0.4 mg Capsule
0.4 mg PO HS
ferrous sulfate 325 mg (65 mg iron) Tablet
325 mg PO DAILY
levothyroxine [Synthroid] 150 mcg Tablet
150 mcg PO DAILY
calcitriol 0.25 mcg Capsule
0.25 mcg PO DAILY
finasteride 5 mg Tablet
5 mg PO DAILY
rosuvastatin 10 mg Tablet
10 mg PO DAILY
cholecalciferol (vitamin D3) 100 mcg (4,000 unit) Capsule
500 unit PO DAILY
Eliquis 2.5 mg Tablet
2.5 mg PO BID
Changed
insulin glargine [Lantus Solostar U-100 Insulin] 100 unit/mL (3 mL) Insulin Pen
5 unit SC QPM Qty: 0 0RF
Discharge Orders:
Discharge Patient (As Directed); Ordered 02/17/24
Ordered By: Liz Patrick
Discharge Date and Time
Print Language: [place] ISLAND[place]
[2024-02-17 14:38] VITALS: BP 111/56
== END 2024-02-17 15:22 | disposition home or self-care (01) | DRG 291 ==
LOC: 4 WEST ACU 21:57
PROVIDERS: Registered Nurse; ADMITTING PHYSICIAN Internal Medicine; ATTENDING PHYSICIAN Student in an Organized Health Care Education/Training Program; EMERGENCY PHYSICIAN Emergency Medicine; FAMILY PHYSICIAN Family Medicine; OTHER PHYSICIAN Internal Medicine Cardiovascular Disease
DX: I13.0 Hypertensive heart and chronic kidney disease with heart failure and stage 1 through stage 4 chronic kidney disease, or unspecified chronic kidney disease (principal); I50.31 Acute diastolic (congestive) heart failure; J98.11 Atelectasis; N17.9 Acute kidney failure, unspecified; E03.9 Hypothyroidism, unspecified; I48.0 Paroxysmal atrial fibrillation; I25.10 Atherosclerotic heart disease of native coronary artery without angina pectoris; E78.00 Pure hypercholesterolemia, unspecified; M10.9 Gout, unspecified; I49.5 Sick sinus syndrome; E11.22 Type 2 diabetes mellitus with diabetic chronic kidney disease; Z79.01 Long term (current) use of anticoagulants; N18.30 Chronic kidney disease, stage 3 unspecified
CPT/HCPCS: 71046; 80048; 80053; 80061; 82248; 82962; 83036; 83735; 83880; 84443; 84484; 85025; 85027; 85610; 93005; 93306; 96374; 97162; 97166; 99285

== ENCOUNTER → 2024-04-28 12:13 | Outpatient (REF) | payer OTHER, SELFPAY | LOC: HWRAD 12:13 | PROVIDERS: ATTENDING PHYSICIAN Nurse Practitioner; FAMILY PHYSICIAN Family Medicine | DX: I12.9 Hypertensive chronic kidney disease with stage 1 through stage 4 chronic kidney disease, or unspecified chronic kidney disease (principal); N18.32 Chronic kidney disease, stage 3b | CPT/HCPCS: 76770 ==

== ENCOUNTER 2024-08-21 01:22 | Inpatient (IN) | payer OTHER, SELFPAY ==
[2024-08-20 20:16] VITALS: BP 119/58
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
--- NOTE | 2024-08-20 23:03 | EDRN ---
Report received at this time, introduced myself to patient, call [place] in reach
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
[2024-08-20 23:35] VITALS: BP 132/66; BMI 27.7
[2024-08-20] MEDS: ROCEPHIN 2000 MG IV (23:43)
[2024-08-21] VITALS (8 sets, daily range): BP systolic 114–138; BP diastolic 59–81; PULSE 71–83; O2SAT 98; BMI 27.2
[2024-08-21 00:02] LABS: Blood Urea Nitrogen 62 mg/dl (9-20); Carbon Dioxide 23 mmol/L (22-30); Chloride 111 mmol/L (98-107); Estimated Creatinine Clearance 23 ml/min; Glucose 137 mg/dl (70-99); Potassium 4.4 mmol/L (3.5-5.1); Sodium 138 mmol/L (135-145); eGFR 26.81
[2024-08-21 00:05] LABS: % Basophils 0.4 % (0-2); % Eosinophils 1.8 % (0-6); % Lymphocytes 19.2 % (20.5-51.1); % Monocytes 10.6 % (1.7-9.3); Absolute Eosinophils 0.1 10^3/uL (0-0.7); Absolute Lymphocytes 1.1 10^3/uL (1.2-3.4); Absolute Monocytes 0.6 10^3/uL (0.1-0.6); Absolute Neutrophils 3.7 10^3/uL (1.4-6.5); Hematocrit 31.6 % (39.0-52.0); Hemoglobin 10.3 g/dL (13.0-18.0); Mean Corp Hgb Conc. 32.6 g/dL (33.0-37.0); Mean Corpuscular Hgb 34.2 pg (27.0-31.0); Mean Platelet Volume 10.9 fL (7.4-10.4); Nucleated Red Blood Cells % 0 % (-); Platelet Count 108 10^3/uL (130-400); Red Blood Cell Count 3.01 10^6/uL (4.70-6.10); White Blood Cell Count 5.5 10^3/uL (4.8-10.8)
--- NOTE | 2024-08-21 01:01 | EDRN ---
Dr. Youssef at bedside working on admission
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
--- NOTE | 2024-08-21 02:16 | EDRN ---
Patient ambulated to the restroom and back in bed resting comfortably at this time.
[2024-08-21] MEDS: ANCEF 5 IV ×2 (06:03→18:41)
[2024-08-21] MEDS: SYNTHROID 150 MCG PO (06:03)
[2024-08-21 07:55] LABS: Glucose - Point of Care 123 mg/dl (70-99)
[2024-08-21 08:03] LABS: Hematocrit 29.8 % (39.0-52.0); Hemoglobin 9.7 g/dL (13.0-18.0); Mean Corp Hgb Conc. 32.6 g/dL (33.0-37.0); Mean Corpuscular Hgb 34.2 pg (27.0-31.0); Mean Corpuscular Volume 104.9 fL (80.0-94.0); Mean Platelet Volume 11.4 fL (7.4-10.4); Platelet Count 101 10^3/uL (130-400); Red Blood Cell Count 2.84 10^6/uL (4.70-6.10); Red Cell Dist. Width 13.9 % (11.5-14.5); White Blood Cell Count 5.1 10^3/uL (4.8-10.8)
[2024-08-21 08:15] LABS: Blood Urea Nitrogen 58 mg/dl (9-20); Calcium 8.7 mg/dl (8.4-10.2); Carbon Dioxide 21 mmol/L (22-30); Chloride 111 mmol/L (98-107); Estimated Creatinine Clearance 22 ml/min; Glucose 126 mg/dl (70-99); Potassium 4.5 mmol/L (3.5-5.1); Sodium 139 mmol/L (135-145); eGFR 25.48
[2024-08-21] MEDS: FEOSOL 325 MG PO (10:20)
[2024-08-21] MEDS: TOPROL XL 25 MG PO ×2 (10:20→21:18)
[2024-08-21] MEDS: PROSCAR 5 MG PO (10:20)
[2024-08-21] MEDS: ZYLOPRIM 100 MG PO (10:21)
[2024-08-21] MEDS: FLUSH (NSS) 2 FLUSH IV ×2 (10:22→18:41)
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
[2024-08-21 12:16] LABS: Glucose - Point of Care 109 mg/dl (70-99)
[2024-08-21] MEDS: LASIX 40 MG PO (13:30)
[2024-08-21 13:53] LABS: NT-proBNP 2660 pg/ml
[2024-08-21 17:17] LABS: Urine Albumin 1+ (Neg - Trace); Urine Bilirubin Negative (Negative); Urine Character Clear (Clear); Urine Color Yellow; Urine Glucose Negative (Negative); Urine Ketone Negative (Negative); Urine Leukocyte Negative (Negative); Urine Nitrite Negative (Negative); Urine Occult Blood Negative (Negative); Urine Specific Gravity 1.015 (<1.030); Urine Urobilinogen Negative (Neg - 1+)
[2024-08-21 17:24] LABS: Urine Squamous Cell >30 /LPF (Few)
[2024-08-21 17:25] LABS: Urine Bacteria Few (Negative); Urine Red Blood Cell 0-2 /HPF (0-2)
[2024-08-21 18:16] LABS: Glucose - Point of Care 130 mg/dl (70-99)
[2024-08-21] MEDS: LANTUS 0.1 UNITS SC (18:42)
[2024-08-21] MEDS: FLOMAX 0.4 MG PO (21:18)
[2024-08-21] MEDS: ROCALTROL 0.25 MCG PO (21:18)
[2024-08-21] MEDS: CRESTOR 10 MG PO (21:18)
[2024-08-21 22:22] LABS: Glucose - Point of Care 116 mg/dl (70-99)
[2024-08-22 06:00] VITALS: BMI 27.4
[2024-08-22] MEDS: SYNTHROID 150 MCG PO (06:28)
[2024-08-22] MEDS: ANCEF 5 IV ×2 (06:28→18:21)
[2024-08-22 07:00] VITALS: BP 127/56
[2024-08-22 07:42] LABS: Glucose - Point of Care 93 mg/dl (70-99)
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
[2024-08-22] MEDS: FEOSOL 325 MG PO (08:55)
[2024-08-22] MEDS: LASIX 40 MG PO (08:55)
[2024-08-22] MEDS: PROSCAR 5 MG PO (08:56)
[2024-08-22] MEDS: TOPROL XL 25 MG PO ×2 (08:57→20:38)
[2024-08-22] MEDS: ZYLOPRIM 100 MG PO (08:57)
[2024-08-22 09:12] LABS: Glycohemoglobin (HgbA1c) 5.5 % (4.0-5.6)
[2024-08-22 09:20] LABS: Hematocrit 31.3 % (39.0-52.0); Hemoglobin 10.5 g/dL (13.0-18.0); Mean Corp Hgb Conc. 33.5 g/dL (33.0-37.0); Mean Corpuscular Hgb 34.9 pg (27.0-31.0); Mean Platelet Volume 11.2 fL (7.4-10.4); Platelet Count 106 10^3/uL (130-400); Red Blood Cell Count 3.01 10^6/uL (4.70-6.10); White Blood Cell Count 4.9 10^3/uL (4.8-10.8)
[2024-08-22 09:36] LABS: ALT (SGPT) 34 U/L (0-50); AST (SGOT) 25 U/L (17-59); Albumin 3.6 g/dl (3.5-5.0); Alkaline Phosphatase 84 U/L (38-126); Blood Urea Nitrogen 48 mg/dl (9-20); Carbon Dioxide 22 mmol/L (22-30); Chloride 110 mmol/L (98-107); Creatine Phosphokinase 60 U/L (55-170); Estimated Creatinine Clearance 25 ml/min; Glucose 85 mg/dl (70-99); Iron 70 ug/dl (49-181); Magnesium 2.1 mg/dl (1.6-2.3); Potassium 4.2 mmol/L (3.5-5.1); Sodium 139 mmol/L (135-145); Total Bilirubin 0.8 mg/dl (0.2-1.3)
[2024-08-22 09:45] LABS: Percent Saturation 24 % (20-50); Total Iron Binding Capacity 283 ug/dl (261-462)
[2024-08-22 11:45] LABS: Glucose - Point of Care 120 mg/dl (70-99)
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
[2024-08-22 15:00] VITALS: BP 108/52
[2024-08-22 16:33] LABS: Glucose - Point of Care 132 mg/dl (70-99)
--- NOTE | 2024-08-22 17:15 | CM ---
Patient seen at bedside with physicians. Patient states that he lives with his and daughter in a 2 story home but he stays on the first floor. Patient has a nebulizer, and walker at home. Patient plan is to go home with HH or return to
outpatient therapy. Patient PCP is Dr. raul hickman and [facility] in [place]. CM will continue to follow for discharge planning needs.
Plan; home with VN vs home with no needs.
[2024-08-22] MEDS: LANTUS 0.1 UNITS SC (18:21)
[2024-08-22] MEDS: FLOMAX 0.4 MG PO (20:38)
[2024-08-22] MEDS: ROCALTROL 0.25 MCG PO (20:38)
[2024-08-22] MEDS: CRESTOR 10 MG PO (20:38)
--- NOTE | 2024-08-22 21:59 | PTCARENOTE ---
Pt refuses HS accucheck. Pt educated on importance, pt adamant about no need for sugar check. [employer] RESIDENTIAL SERVICE TECHNICIAN made aware, no further orders.
[2024-08-22] MEDS: TUMS CHEWABLE TABLET 200 MG PO (22:06)
[2024-08-22 23:39] VITALS: BP 130/71
[2024-08-23] MEDS: SYNTHROID 150 MCG PO (05:59)
[2024-08-23] MEDS: ANCEF 5 IV (05:59)
[2024-08-23 06:00] VITALS: BMI 26.4
[2024-08-23 07:00] VITALS: BP 105/56
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
[2024-08-23 07:41] LABS: Glucose - Point of Care 96 mg/dl (70-99)
[2024-08-23 07:57] LABS: % Basophils 0.9 % (0-2); % Immature Granulocytes 0.2 % (0-0.5); % Lymphocytes 21.4 % (20.5-51.1); % Monocytes 11.9 % (1.7-9.3); % Neutrophils 63.6 % (42.2-75.2); Absolute Basophils 0.1 10^3/uL (0-0.2); Absolute Eosinophils 0.1 10^3/uL (0-0.7); Absolute Lymphocytes 1.2 10^3/uL (1.2-3.4); Absolute Monocytes 0.7 10^3/uL (0.1-0.6); Absolute Neutrophils 3.5 10^3/uL (1.4-6.5); Hematocrit 29.4 % (39.0-52.0); Hemoglobin 9.8 g/dL (13.0-18.0); Mean Corp Hgb Conc. 33.3 g/dL (33.0-37.0); Mean Corpuscular Hgb 34.5 pg (27.0-31.0); Mean Corpuscular Volume 103.5 fL (80.0-94.0); Mean Platelet Volume 10.8 fL (7.4-10.4); Nucleated Red Blood Cells % 0 % (-); Platelet Count 109 10^3/uL (130-400); Red Blood Cell Count 2.84 10^6/uL (4.70-6.10); White Blood Cell Count 5.5 10^3/uL (4.8-10.8)
[2024-08-23] MEDS: TOPROL XL 25 MG PO (08:15)
[2024-08-23] MEDS: FEOSOL 325 MG PO (08:15)
[2024-08-23] MEDS: LASIX 40 MG PO (08:15)
[2024-08-23] MEDS: PROSCAR 5 MG PO (08:15)
[2024-08-23] MEDS: ZYLOPRIM 100 MG PO (08:15)
[2024-08-23 08:27] LABS: Blood Urea Nitrogen 47 mg/dl (9-20); Carbon Dioxide 23 mmol/L (22-30); Chloride 108 mmol/L (98-107); Estimated Creatinine Clearance 25 ml/min; Glucose 77 mg/dl (70-99); Potassium 4.2 mmol/L (3.5-5.1); Sodium 137 mmol/L (135-145)
--- NOTE | 2024-08-23 12:28 | W.PN.NEPH.PH ---
Today's Communication / Plan
-
see plan
Assessment/Plan
-
Impression:
Left lower extremity hematoma/cellulitis
Acute kidney injury (2.4)
CKD 3b (1.9)
Anemia
Congestive heart failure
Paroxysmal atrial fibrillation
Hypertension
Diabetes
BPH
Hypothyroidism
Secondary hyperparathyroid
Left renal cyst
Plan:
JOSELYN:
cr stable at 2.1-likely baseline, CK normal
he was seen ?nephro at [facility]
tolerating daily lasix with improving edema and wt-likely can change to po tomorrow
Maintain calcitriol for secondary hyperparathyroidism
hb 9.8 stable, adequate fe stores on PO fe, Epo level pending
he wish to see our practice from now on since he lives close to now
-
-
Date of Service: August 23, 2024
CC / HPI / ROS
-
Chief Complaint:
JOSELYN with CKD
History of Present Illness:
cr stable at 2.1
BP stable
hb slightly low at 9.8
Review of Systems:
no cp or sob
hematoma improving left leg
Labs
-
Labs:
WBC 5.5 10^3/uL (4.8-10.8) 08/23/24 07:06
RBC 2.84 10^6/uL (4.70-6.10) L 08/23/24 07:06
Hgb 9.8 g/dL (13.0-18.0) L 08/23/24 07:06
Hct 29.4 % (39.0-52.0) L 08/23/24 07:06
Plt Count 109 10^3/uL (130-400) L 08/23/24 07:06
Sodium 137 mmol/L (135-145) 08/23/24 07:06
Potassium 4.2 mmol/L (3.5-5.1) 08/23/24 07:06
Chloride 108 mmol/L (98-107) H 08/23/24 07:06
Carbon Dioxide 23 mmol/L (22-30) 08/23/24 07:06
BUN 47 mg/dl (9-20) H 08/23/24 07:06
Creatinine 2.1 mg/dL (0.7-1.3) H 08/23/24 07:06
eGFR 29.90 08/23/24 07:06
Glucose 77 mg/dl (70-99) 08/23/24 07:06
Calcium 9.0 mg/dl (8.4-10.2) 08/23/24 07:06
Itj-W-Nwloeivakdg Pept 2660 pg/ml 08/21/24 06:28
Albumin 3.6 g/dl (3.5-5.0) 08/22/24 07:45
Physical Exam
-
Vital Signs:
Vital Signs
Temp Pulse Resp BP Pulse Ox
97.9 F 78 16 105/56 97
08/23/24 07:00 08/23/24 08:15 08/23/24 07:00 08/23/24 08:15 08/23/24 07:00
Cardiovascular:: Regular rate and rhythm
Respiratory:: Bilateral: CTA
Lung Excursion:: Normal
Abdomen:: Nontender and Soft
Extremity Edema:: +2: Left: and None: Right:
Mohr Catheter: No
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
[2024-08-23 15:00] VITALS: BP 114/55
--- NOTE | 2024-08-23 15:35 | CM ---
Patient seen at bedside with physicians in [facility]. Patient for discharge home today with outpatient therapy, IMM completed and patient family to transport home. Patient indicated that he was happy for discharge. CM will continue to follow for
discharge planning needs.
Plan; home with out patient therapy follow up. patient given script to return to prior outpatient therapy
[2024-08-23 16:20] LABS: Erythropoietin (EPO) 24 mU/mL (4-27)
== END 2024-08-23 15:35 | disposition home or self-care (01) | DRG 604 ==
LOC: 4 WEST ACU 01:22
PROVIDERS: Student in an Organized Health Care Education/Training Program; ADMITTING PHYSICIAN Hospitalist; ATTENDING PHYSICIAN Internal Medicine; CONSULT PHYSICIAN Specialist; EMERGENCY PHYSICIAN Student in an Organized Health Care Education/Training Program; FAMILY PHYSICIAN Family Medicine
DX: S70.12XA Contusion of left thigh, initial encounter (principal); I50.33 Acute on chronic diastolic (congestive) heart failure; L03.90 Cellulitis, unspecified; I13.0 Hypertensive heart and chronic kidney disease with heart failure and stage 1 through stage 4 chronic kidney disease, or unspecified chronic kidney disease; N17.9 Acute kidney failure, unspecified; D62 Acute posthemorrhagic anemia; N25.81 Secondary hyperparathyroidism of renal origin; S80.12XA Contusion of left lower leg, initial encounter; V89.2XXA Person injured in unspecified motor-vehicle accident, traffic, initial encounter; N18.32 Chronic kidney disease, stage 3b; E11.22 Type 2 diabetes mellitus with diabetic chronic kidney disease; E03.9 Hypothyroidism, unspecified; Z79.890 Hormone replacement therapy; Z79.4 Long term (current) use of insulin; Z79.01 Long term (current) use of anticoagulants; I25.10 Atherosclerotic heart disease of native coronary artery without angina pectoris; I48.0 Paroxysmal atrial fibrillation; N40.0 Benign prostatic hyperplasia without lower urinary tract symptoms; D50.9 Iron deficiency anemia, unspecified; Z95.5 Presence of coronary angioplasty implant and graft; Z88.2 Allergy status to sulfonamides; Z88.1 Allergy status to other antibiotic agents; Z91.041 Radiographic dye allergy status; Z79.899 Other long term (current) drug therapy; E78.00 Pure hypercholesterolemia, unspecified; Z95.0 Presence of cardiac pacemaker
CPT/HCPCS: 80048; 80053; 81003; 81015; 82550; 82668; 82728; 82962; 83036; 83540; 83550; 83735; 83880; 85025; 85027; 93971; 96374; 97116; 97162; 99284

== ENCOUNTER 2024-11-18 15:44 | Inpatient (IN) | payer OTHER, SELFPAY ==
[2024-11-18 12:46] VITALS: BP 118/77
[2024-11-18 13:03] LABS: Hematocrit 32.8 % (39.0-52.0); Hemoglobin 10.4 g/dL (13.0-18.0); Mean Corp Hgb Conc. 31.7 g/dL (33.0-37.0); Mean Corpuscular Volume 105.1 fL (80.0-94.0); Nucleated Red Blood Cells % 0 % (-); Platelet Count 100 10^3/uL (130-400); Red Cell Dist. Width 13.7 % (11.5-14.5)
--- NOTE | 2024-11-18 13:42 | EDRN ---
Pt states he arrives for pain and swelling of R lower leg after hitting it on bottom of car door when getting into car on Thursday. Pt is on Eliquis.
[2024-11-18 13:43] VITALS: BMI 26.9
[2024-11-18 13:43] LABS: ALT (SGPT) 51 U/L (0-50); AST (SGOT) 32 U/L (17-59); Albumin 4.0 g/dl (3.5-5.0); Alkaline Phosphatase 78 U/L (38-126); Blood Urea Nitrogen 55 mg/dl (9-20); Calcium 9.2 mg/dl (8.4-10.2); Carbon Dioxide 17 mmol/L (22-30); Chloride 111 mmol/L (98-107); Glucose 142 mg/dl (70-99); Potassium 4.8 mmol/L (3.5-5.1); Sodium 137 mmol/L (135-145); Total Protein 6.6 g/dl (6.3-8.2); eGFR 28.28
[2024-11-18 13:48] VITALS: BP 119/60
--- NOTE | 2024-11-18 14:01 | EDRN ---
Dr. Ingram w/ pt at this time. He was told this RN requested orders for Xray and US of R lower leg.
--- NOTE | 2024-11-18 14:05 | ED.GENMED ---
History of Present Illness
General
Chief Complaint: Skin Problem
Source: patient and family
Exam Limitations: none
Time Seen by Provider: 11/18/24 13:58
History of Present Illness
History of Present Illness:
89-year-old male hit his right anterior leg 3 days ago. Area of redness noted. No pain with ambulation. No other injury or complaint. Patient is on Eliquis and faithful.
Past History
Past History
ED Past Medical History: Arrthythmia (Atrial fib), HTN, Hypercholesterolemia, IDDM and Hypothyroidism
ED Past Surgical History: Cardiac (Pacemaker, 2 stents) and Cholecystectomy
Social History
Tobacco: Non-smoker
Alcohol: None
Personal:
Living: with family
Review of Systems
Review of Systems
All Other Systems: Not applicable
Constitutional: Denies fever or chills
Phy Exam
Physical Exam
Physical Exam:
GENERAL: Alert and oriented in no apparent distress. Elderly and frail
EYE: Orbits normal.
CARDIAC: Regular rate and rhythm
LUNGS: No respiratory distress
NEUROLOGICAL: Alert and oriented , grossly non-focal
SKIN: Warm and dry, hematoma to the right mid anterior tibia with surrounding cellulitis distally approximately 30 cm top to bottom and circumferential.
MUSCULOSKELETAL: Chronic edema both lower extremities right greater than left
PSYCH: Normal and appropriate interaction.
Course
Orders/Labs/Results
Orders:
Orders
11/18/24 12:55
Complete Blood Count/With Diff Urgent
Comprehensive Metabolic Panel Urgent
Lactic Acid Q4H
Comment: ON ICE, CANCEL 2ND ORDER IF FIRST LACTIC ACID LEVEL <2
11/18/24 13:56
CR Leg Tibia/fibula Right 2 Vw Urgent
Comment:
Reason For Exam: swelling, pain, injury, bruising, on Eliquis
11/18/24 14:05
CeFAZolin 2 GRAM [Ancef] 2 grams in 10 ml IV NOW
11/18/24 15:18
Admit/Transfer Patient As Directed
Co-Sign Provider:
Level of Care: Inpatient admission
Assign to:: Telemetry
Physician / Group: susy/hospitalist
Diagnosis: RLE hematoma/cellulitis
Reason for Telemetry: Arrhythmia
Date to Stop Telemetry: 11/21/24
Time to Stop Telemetry: 11:00
Reason for Hospitalization: RLE hematoma/cellulitis/afib/ckd
Expected length of stay greater than two midnights?: Yes
ELOS- Estimated Length of Stay in days: 4
I certify the patient meets the requirements for IP care: Yes
PRN Pain Medication Management As Directed
May give lesser potent ordered pain med per pt: Yes
preference::
Protocol:: Medication orders for pain may be administered in a
manner that supports deferring to patient preference
when the pt is:
- Requesting an ordered lesser potent pain medication.
Least to most potent pain medications are defined
as: acetaminophen < NSAID < tramadol < opioids
(morphine, oxycodone, hydromorphone).
- Requesting a lesser dose of the same medication IF
ORDERED.
- Requesting a less intrusive route of administration
if both routes are prescribed by the provider (PO <
IV).
11/18/24 15:20
Code Status As Directed
Resuscitation Status: Full Code
11/21/24 11:00
DC Protocol for Telemetry ONCE
Abnormal Lab Results
11/18/24
12:55
RBC 3.12 L 10^6/uL
(4.70-6.10)
Hgb 10.4 L g/dL
(13.0-18.0)
Hct 32.8 L %
(39.0-52.0)
MCV 105.1 H fL
(80.0-94.0)
MCH 33.3 H pg
(27.0-31.0)
MCHC 31.7 L g/dL
(33.0-37.0)
Plt Count 100 L 10^3/uL
(130-400)
Monocytes % 10.0 H %
(1.7-9.3)
Chloride 111 H mmol/L
(98-107)
Carbon Dioxide 17 L mmol/L
(22-30)
BUN 55 H mg/dl
(9-20)
Creatinine 2.2 H mg/dL
(0.7-1.3)
Glucose 142 H mg/dl
(70-99)
Lactic Acid < 0.5 L mmol/L
(0.7-2.0)
ALT 51 H U/L
(0-50)
11/18/24 12:55
11/18/24 12:55
Vital Signs
Initial and Last Documented VS:
Initial Vital Signs
Temp Pulse Resp BP Pulse Ox
98.6 F 95 16 118/77 98
11/18/24 12:46 11/18/24 12:46 11/18/24 12:46 11/18/24 12:46 11/18/24 12:46
Last Documented Vital Signs
Temp Pulse Resp BP Pulse Ox
98.6 F 74 16 119/60 96
11/18/24 12:46 11/18/24 13:48 11/18/24 13:48 11/18/24 13:48 11/18/24 14:09
*Radiology
Radiology exam reviewed: preliminary read by ED provider (Healing fracture)
*Pulse Oximetry
SaO2: 96
Oxygen Mode of Delivery: Room air
Patient hypoxic: no
*Critical Care Note
Total Time (30-74mins, 75-104mins- exclusive of procedures): Not Applicable
ED Attending Note
-
Portions of this chart may have been created with voice recognition software.� Occasional wrong word or��sound alike� substitutions may have occurred due to the inherent limitations of voice recognition software.
Discharge Plan
Departure
Patient Disposition: Admit
Date of Disposition: 11/18/24
Time of Disposition: 14:49
Presentation/result/management discussed w/ accepting MD/DO: Hospitalist
Discharge Problem:
Posttraumatic cellulitis
Interventions
Interventions:
*Risk Screen - Suicide Last Done: 11/18/24 12:46
*General Assessment Last Done: 11/18/24 13:41
*Neglect/Abuse Screening Last Done: 11/18/24 12:46
*ED- Fall Risk Assessment Last Done: 11/18/24 13:41
*ED COVID-19 Vaccine History Last Done: 11/18/24 13:41
ED-Skin Assessment Last Done: 11/18/24 13:45
[2024-11-18] MEDS: ANCEF 10 IV (14:31)
--- NOTE | 2024-11-18 14:41 | EDRN ---
Pt moved to room #20 in ED as pt to be admitted per Dr. Ingram.
--- NOTE | 2024-11-18 15:09 | HPS.HSE ---
Family Physician
-
Family Physician: Marcelino Santacruz
Chief Complaint
-
Right leg redness
History of Present Illness
89-year-old male with significant past medical history as below who is presented to the ER with complaints of right lower extremity swelling. Patient states on injured right shane on Thursday when the car door hit him accidentally. States since then
his right leg is red, swollen and bruised. States some mild pain initially while walking and then the pain resolves. Patient continues to take Eliquis at home. Patient states of significant swelling and thus decided come into the ER. Denies any
fevers. States he is always cold. Denies any resting pain in the right lower extremity. Denies any numbing or tingling. States recently had blood work done for his CKD and follows with clinical nurse. No changes in his medication regimen since he
was admitted last in August 2024. Last dose of Eliquis was earlier this morning.
Medical History
Past Medical History
Past Medical History: Reports Other
Additional Past Medical History:
Paroxysmal Atrial Fibrillation
ASCVD
Chronic HFpEF
Hypertension
DM-II
BPH
CKD III
Iron Deficiency Anemia
Hypothyroidism
Past Surgical History: Reports Other
Additional Past Surgical History:
Cholecystectomy
PPM Placement
T&A
PTCA with Stent
Social History
Tobacco: Non-smoker
Alcohol: None
Drug: None
Family History
Family History: Not pertinent
Allergies / Home Medications
Allergies reflects when Allergies were last updated in [employer].
Home Medications with original date entered in [employer]
Allergy/Medication List:
Allergies
Allergy/AdvReac Type Severity Reaction Status Date / Time
iodine Allergy Hives Verified 11/18/24 12:46
Sulfa (Sulfonamide Allergy Rash Verified 11/18/24 12:46
Antibiotics)
tetracycline Allergy Hives Verified 11/18/24 12:46
Home Medications
allopurinol 100 mg tablet 100 mg PO DAILY Gout 02/15/24
calcitriol 0.25 mcg capsule 0.25 mcg PO DAILY@1200 Supplement 02/15/24
ferrous sulfate 325 mg (65 mg iron) tablet 325 mg PO DAILY@1200 Supplement 02/15/24
finasteride 5 mg tablet 5 mg PO DAILY Urinary Issue 02/15/24
levothyroxine 150 mcg tablet (Synthroid) 150 mcg PO DAILY 02/15/24
rosuvastatin 10 mg tablet 10 mg PO QPM 02/15/24
tamsulosin 0.4 mg capsule 0.4 mg PO HS 02/15/24
furosemide 40 mg tablet (Lasix) 40 mg PO MOWEFR #30 tabs 02/17/24
metoprolol succinate 25 mg tablet,extended release 24 hr 25 mg PO BID #60 tabs 02/17/24
insulin glargine 100 unit/mL (3 mL) subcutaneous pen (Lantus Solostar U-100 Insulin) 10 unit SC HS Diabetes 08/20/24
apixaban 2.5 mg tablet (Eliquis) 2.5 mg PO BID 11/18/24
cholecalciferol (vitamin D3) 25 mcg (1,000 unit) tablet (Vitamin D3) 25 mcg PO DAILY@1200 11/18/24
Review of Systems
-
History Source: Patient and Family
A 12 point ROS was completed and negative except as noted: Yes
Physical Exam
Vital Signs
Vital Signs
Temp Pulse Resp BP Pulse Ox
98.6 F 74 16 119/60 96
11/18/24 12:46 11/18/24 13:48 11/18/24 13:48 11/18/24 13:48 11/18/24 14:09
Physical Exam
General: Well Developed, Well Nourished and No Apparent Distress
HEENT: NormoCephalic, Moist mucous membranes and Atraumatic
Respiratory: Clear
Cardiac: S1/S2 and Irregular Rhythm; No Murmur or Rub
GI: Soft, Non Tender, Non Distended and Normal Bowel Sounds; No Organomegaly
Rectal: Deferred by Provider
Musculoskeletal: No Clubbing, No Cyanosis and Other (R leg edematous with marcos hematoma condition noted. Erythematous. Warm to touch.)
Skin: No Rash
Neuro: Awake, Alert, Oriented, AO x 3 and Nonfocal/grossly intact
Psych: Calm
Laboratory Results
-
11/18/24 12:55
11/18/24 12:55
Laboratory Results
Lactic Acid Cancelled 11/18/24 17:00
Total Bilirubin 0.8 mg/dl (0.2-1.3) 11/18/24 12:55
AST 32 U/L (17-59) 11/18/24 12:55
ALT 51 U/L (0-50) H 11/18/24 12:55
Alkaline Phosphatase 78 U/L (38-126) 11/18/24 12:55
Data Reviewed
-
Diagnostic Radiology: Report Reviewed by me and Discussed with Patient
Lab Data: Labs Reviewed by me, Discussed with Patient and Discussed with Family
Impression/Plan
-
RLE Hematoma +/- Cellulitis
- Hold Eliquis until hematoma clearly resolving.
- Continue IV abx for now and follow for clinical changes in the RLE.
- No change in size of 'lump' / hematoma per patient. Full ROM of the RLE without much discomfort.
- Elevate LE when possible.
- Follow for clinical improvement.
- Tib/Fib xray- No acute fractures appreciated. Nonspecific expansile/smooth periosteal thickening involving the proximal fibular diaphysis, possibly sequela of prior injury or fracture. Diffuse subcutaneous edema within the leg with more focal
area of soft tissue prominence within the pretibial region on the lateral view, which could represent hematoma given patient history.
-If without any improvement may need to consider CT scan.
Chronic Iron Deficiency Anemia with possibly mild acute blood loss component
- Holding Eliquis as noted above.
- Continue iron supplementation as per usual.
- Follow H&H for changes.
Chronic HFpEF
- Currently on thrice weekly Lasix. Next dose thursday.
- Follow I/Os, daily weights, etc. Per pt, compliant with diuretics regimen.
- No change in recent weight
CKD IIIb
Secondary hyperparathyroidism
Non anion gap acidosis
-monitor creatinine closely.
-Cr at 2.2 Cr was 2.1 in 08/28
-Cont calcitriol.
-Trend bmp for now.
-Follows Dr. Meenu Be, [facility].
Paroxysmal Atrial Fibrillation
Sick sinus syndrome status post pacemaker implantation
- Stable. In paced rhythm at present.
- Continue amiodarone / metoprolol.
- Holding Eliquis acutely as noted above.
- Follows with Dr. Proctor as outpatient
Benign Hypertension
- Stable. Continue home med regimen with holding parameters.
DM-II
- Stable. Continue basal insulin + SSI as needed.
- Last A1C was wnl at 5.5 on 09/01/24
- Update A1C.
BPH
- Stable. Continue tamsulosin / finasteride.
- Bladder scan protocol.
Hypothyroidism
- Stable. Continue usual T4 supplementation.
Gout
-Cont Allopurinol
DVT Prophylaxis: venous foot pump for now
Code Status: Full
d/w with family member at bedside in details.
I spent a total of 80 minutes with the patient or on the floor. More than 50% of this time involved counseling and coordination of care.
[2024-11-18 20:13] VITALS: BP 134/71; BMI 27.1
[2024-11-18 20:33] LABS: Glucose - Point of Care 90 mg/dl (70-99)
[2024-11-18] MEDS: CRESTOR 10 MG PO (20:33)
[2024-11-18] MEDS: TOPROL XL 25 MG PO (20:34)
[2024-11-18] MEDS: NOVOLOG FLEXPEN-LOW RESISTANCE SC (20:40)
[2024-11-18 21:42] LABS: Glucose - Point of Care 135 mg/dl (70-99)
[2024-11-18] MEDS: LANTUS 0.1 UNITS SC (22:19)
[2024-11-18] MEDS: FLOMAX 0.4 MG PO (22:19)
[2024-11-18 23:28] VITALS: BP 130/64
[2024-11-19] VITALS (7 sets, daily range): BP systolic 105–130; BP diastolic 56–67; PULSE 72; O2SAT 99; BMI 26.7
[2024-11-19] MEDS: ANCEF 5 IV ×2 (01:03→14:47)
[2024-11-19] MEDS: SYNTHROID 150 MCG PO (05:35)
[2024-11-19 07:39] LABS: Glucose - Point of Care 74 mg/dl (70-99)
[2024-11-19] MEDS: NOVOLOG FLEXPEN-LOW RESISTANCE SC ×2 (07:43→11:49)
[2024-11-19 08:00] LABS: Hematocrit 31.7 % (39.0-52.0); Hemoglobin 10.4 g/dL (13.0-18.0); Mean Corp Hgb Conc. 32.8 g/dL (33.0-37.0); Mean Corpuscular Volume 102.9 fL (80.0-94.0); Nucleated Red Blood Cells % 0 % (-); Platelet Count 96 10^3/uL (130-400); Red Cell Dist. Width 13.8 % (11.5-14.5)
[2024-11-19 08:25] LABS: Blood Urea Nitrogen 51 mg/dl (9-20); Calcium 8.7 mg/dl (8.4-10.2); Carbon Dioxide 17 mmol/L (22-30); Chloride 112 mmol/L (98-107); Estimated Creatinine Clearance 25 ml/min; Glucose 64 mg/dl (70-99); Potassium 4.5 mmol/L (3.5-5.1); Sodium 138 mmol/L (135-145); eGFR 29.90
[2024-11-19] MEDS: PROSCAR 5 MG PO (09:39)
[2024-11-19] MEDS: ZYLOPRIM 100 MG PO (09:39)
[2024-11-19] MEDS: TOPROL XL 25 MG PO ×2 (09:40→19:33)
--- NOTE | 2024-11-19 10:45 | W.PN.HOSP.TC ---
Today's Communication/Plan
-
IV abx
elevated RLE
OOB/PT
hold eliquis for additional 24h.
Assessment / Plan
Assessment / Plan
General: Well Developed, Well Nourished and No Apparent Distress
HEENT: NormoCephalic, Moist mucous membranes and Atraumatic
Respiratory: Clear
Cardiac: S1/S2 and Irregular Rhythm; No Murmur or Rub
GI: Soft, Non Tender, Non Distended and Normal Bowel Sounds; No Organomegaly
Rectal: Deferred by Provider
Musculoskeletal: No Clubbing, No Cyanosis and Other (R leg edematous with marcos hematoma condition noted. Erythematous. Warm to touch. Mild improvement in edema )
Skin: No Rash
Neuro: Awake, Alert, Oriented, AO x 3 and Nonfocal/grossly intact
Psych: Calm
RLE Hematoma +/- Cellulitis
- Hold Eliquis until improvement in hematoma-has not increased in size. Improvement RLE EDEMA. Risk outweighs benefits.
- Continue IV abx for now and follow for clinical changes in the RLE. Renally dosed.
- No change in size of 'lump' / hematoma per patient. Full ROM of the RLE without much discomfort.
- Elevate LE when possible.
- Follow for clinical improvement.
- Tib/Fib xray- No acute fractures appreciated. Nonspecific expansile/smooth periosteal thickening involving the proximal fibular diaphysis, possibly sequela of prior injury or fracture. Diffuse subcutaneous edema within the leg with more focal
area of soft tissue prominence within the pretibial region on the lateral view, which could represent hematoma given patient history.
-If without any improvement may need to consider CT scan.
-Hgb at 10.4.
Chronic Iron Deficiency Anemia with possibly mild acute blood loss component
- Holding Eliquis as noted above.
- Continue iron supplementation as per usual.
- Follow H&H for changes.
Chronic HFpEF
- Currently on thrice weekly Lasix. Next dose thursday.
- Follow I/Os, daily weights, etc. Per pt, compliant with diuretics regimen.
- No change in recent weight
CKD IIIb
Secondary hyperparathyroidism
Non anion gap acidosis
-monitor creatinine closely.
-Cr at 2.1
-Cont calcitriol.
-Trend bmp for now.
-Follows Dr. Meenu Be, [facility].
Paroxysmal Atrial Fibrillation
Sick sinus syndrome status post pacemaker implantation
- Stable. In paced rhythm at present.
- Continue amiodarone / metoprolol.
- Holding Eliquis acutely as noted above.
- Follows with Dr. Proctor as outpatient
Benign Hypertension
- Stable. Continue home med regimen with holding parameters.
DM-II
- Stable. Continue basal insulin + SSI as needed.
- Last A1C was wnl at 5.5 on 09/01/24
- Update A1C. POC am 74
BPH
- Stable. Continue tamsulosin / finasteride.
- Bladder scan protocol.
Hypothyroidism
- Stable. Continue usual T4 supplementation.
Gout
-Cont Allopurinol
DVT Prophylaxis: venous foot pump for now
Code Status: Full
Anticipated Discharge: 24 - 48 hours
Subjective/Interval History
-
Date of Service: November 19, 2024
keeping RLE elevated
denies pain to RLE
Objective Data
-
Labs:
Laboratory Results
11/19/24
07:21
WBC 4.6 L
Hgb 10.4 L
Hct 31.7 L
Plt Count 96 L
Sodium 138
Potassium 4.5
Chloride 112 H
Carbon Dioxide 17 L
BUN 51 H
Creatinine 2.1 H
Glucose 64 L
Calcium 8.7
Vital Signs:
Vital Signs
Temp Pulse Resp BP Pulse Ox
97.4 F 78 18 114/63 99
11/19/24 07:35 11/19/24 09:40 11/19/24 07:35 11/19/24 09:40 11/19/24 07:35
I&O
11/18/24 11/19/24 11/20/24
06:59 06:59 06:59
Intake Total 240 / 240
Output Total 500 / 500
Balance -260 / -260
[2024-11-19 11:11] LABS: Glycohemoglobin (HgbA1c) 5.4 % (4.0-5.6)
[2024-11-19 11:44] LABS: Glucose - Point of Care 113 mg/dl (70-99)
[2024-11-19] MEDS: FEOSOL 325 MG PO (12:33)
[2024-11-19] MEDS: VITAMIN D3 (cholecalciferol) 25 MCG PO (12:33)
[2024-11-19] MEDS: ROCALTROL 0.25 MCG PO (12:33)
[2024-11-19 16:26] LABS: Glucose - Point of Care 171 mg/dl (70-99)
[2024-11-19] MEDS: NOVOLOG FLEXPEN-LOW RESISTANCE 1 UNITS SC (17:30)
[2024-11-19] MEDS: CRESTOR PO ×2 (17:30→17:35)
[2024-11-19 21:11] LABS: Glucose - Point of Care 129 mg/dl (70-99)
[2024-11-19] MEDS: LANTUS SC (21:24)
[2024-11-19] MEDS: FLOMAX 0.4 MG PO (21:25)
[2024-11-19] MEDS: CRESTOR 10 MG PO (21:25)
[2024-11-19] MEDS: MELATONIN 5 MG PO (21:25)
[2024-11-19] MEDS: LANTUS 0.1 UNITS SC (22:44)
[2024-11-20] MEDS: ANCEF 5 IV ×2 (02:38→14:17)
[2024-11-20 03:08] VITALS: BP 113/60
[2024-11-20] MEDS: SYNTHROID 150 MCG PO (05:18)
[2024-11-20 06:00] VITALS: BMI 26.5
[2024-11-20 07:36] LABS: Glucose - Point of Care 85 mg/dl (70-99)
[2024-11-20] MEDS: NOVOLOG FLEXPEN-LOW RESISTANCE SC ×2 (07:49→12:06)
[2024-11-20 07:55] VITALS: BP 121/62
[2024-11-20 08:12] LABS: Hematocrit 30.0 % (39.0-52.0); Hemoglobin 9.9 g/dL (13.0-18.0); Mean Corp Hgb Conc. 33.0 g/dL (33.0-37.0); Mean Corpuscular Volume 104.5 fL (80.0-94.0); Nucleated Red Blood Cells % 0 % (-); Platelet Count 99 10^3/uL (130-400); Red Cell Dist. Width 13.7 % (11.5-14.5)
[2024-11-20] MEDS: TOPROL XL 25 MG PO (08:27)
[2024-11-20] MEDS: PROSCAR 5 MG PO (08:27)
[2024-11-20] MEDS: ZYLOPRIM 100 MG PO (08:27)
[2024-11-20 08:28] LABS: Blood Urea Nitrogen 47 mg/dl (9-20); Calcium 9.0 mg/dl (8.4-10.2); Carbon Dioxide 19 mmol/L (22-30); Chloride 112 mmol/L (98-107); Estimated Creatinine Clearance 25 ml/min; Glucose 81 mg/dl (70-99); Potassium 4.6 mmol/L (3.5-5.1); Sodium 137 mmol/L (135-145); eGFR 29.90
[2024-11-20 11:33] VITALS: BP 111/55
--- NOTE | 2024-11-20 11:57 | W.PN.HOSP.TC ---
Today's Communication/Plan
-
po abx
dc home
hold eliquis
Assessment / Plan
Assessment / Plan
General: Well Developed, Well Nourished and No Apparent Distress
HEENT: NormoCephalic, Moist mucous membranes and Atraumatic
Respiratory: Clear
Cardiac: S1/S2 and Irregular Rhythm; No Murmur or Rub
GI: Soft, Non Tender, Non Distended and Normal Bowel Sounds; No Organomegaly
Rectal: Deferred by Provider
Musculoskeletal: No Clubbing, No Cyanosis and Other (R leg edematous with marcos hematoma noted without any increase in size. Erythematous. Warm to touch. Mild improvement in edema )
Skin: No Rash
Neuro: Awake, Alert, Oriented, AO x 3 and Nonfocal/grossly intact
Psych: Calm
RLE Hematoma +/- Cellulitis
- Hold Eliquis until improvement in hematoma-has not increased in size. Improvement RLE EDEMA. Risk outweighs benefits. Recommend to continue to hold Eliquis and resume Eliquis after 48 hours
- Continue IV abx for now and follow for clinical changes in the RLE. Renally dosed. po keflex on dc.
- No change in size of 'lump' / hematoma per patient. Full ROM of the RLE without much discomfort.
- Elevate LE when possible.
- Follow for clinical improvement.
- Tib/Fib xray- No acute fractures appreciated. Nonspecific expansile/smooth periosteal thickening involving the proximal fibular diaphysis, possibly sequela of prior injury or fracture. Diffuse subcutaneous edema within the leg with more focal
area of soft tissue prominence within the pretibial region on the lateral view, which could represent hematoma given patient history.
-
Chronic Iron Deficiency Anemia with possibly mild acute blood loss component
- Holding Eliquis as noted above.
- Continue iron supplementation as per usual.
- Follow H&H for changes.
Chronic HFpEF
- Currently on thrice weekly Lasix. Next dose thursday.
- Follow I/Os, daily weights, etc. Per pt, compliant with diuretics regimen.
- No change in recent weight
CKD IIIb
Secondary hyperparathyroidism
Non anion gap acidosis
-monitor creatinine closely.
-Cr at 2.1
-Cont calcitriol.
-Trend bmp for now.
-Follows Dr. Meenu Be, [facility].
Paroxysmal Atrial Fibrillation
Sick sinus syndrome status post pacemaker implantation
- Stable. In paced rhythm at present.
- Continue amiodarone / metoprolol.
- Holding Eliquis acutely as noted above.
- Follows with Dr. Proctor as outpatient
Benign Hypertension
- Stable. Continue home med regimen with holding parameters.
DM-II
- Stable. Continue basal insulin + SSI as needed.
- Last A1C was wnl at 5.5 on 09/01/24
- Update A1C. POC am 74
BPH
- Stable. Continue tamsulosin / finasteride.
- Bladder scan protocol.
Hypothyroidism
- Stable. Continue usual T4 supplementation.
Gout
-Cont Allopurinol
DVT Prophylaxis: venous foot pump for now
Code Status: Full
PT Home
More than 30 minutes spent in discharge including
Final examination of the patient
Summarizing hospital stay
Instructions for continuing care to all relevant caregivers
Preparation of discharge records, prescriptions, and referral forms
Total time spent (in minutes): 52
Anticipated Discharge: Today
Subjective/Interval History
-
Date of Service: November 20, 2024
Denies any right lower extremity pain
Denies any numbing or tingling in the right lower extremity
No overnight events
Remains afebrile
Objective Data
-
Labs:
Laboratory Results
11/20/24
06:39
WBC 5.1
Hgb 9.9 L
Hct 30.0 L
Plt Count 99 L
Sodium 137
Potassium 4.6
Chloride 112 H
Carbon Dioxide 19 L
BUN 47 H
Creatinine 2.1 H
Glucose 81
Calcium 9.0
Vital Signs:
Vital Signs
Temp Pulse Resp BP Pulse Ox
97.8 F 70 16 111/55 99
11/20/24 11:33 11/20/24 11:33 11/20/24 11:33 11/20/24 11:33 11/20/24 11:33
I&O
11/19/24 11/20/24 11/21/24
06:59 06:59 06:59
Intake Total 240 / 240 900 / 900
Output Total 500 / 500
Balance -260 / -260 900 / 900
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
[2024-11-20 12:01] LABS: Glucose - Point of Care 97 mg/dl (70-99)
[2024-11-20] MEDS: FEOSOL 325 MG PO (13:02)
[2024-11-20] MEDS: VITAMIN D3 (cholecalciferol) PO ×2 (13:02→13:04)
[2024-11-20] MEDS: ROCALTROL 0.25 MCG PO (13:02)
== END 2024-11-20 15:14 | disposition home or self-care (01) | DRG 605 ==
LOC: 4 EAST ACU 15:44
PROVIDERS: Emergency Medicine; ADMITTING PHYSICIAN Hospitalist; EMERGENCY PHYSICIAN Emergency Medicine; FAMILY PHYSICIAN Family Medicine
DX: S80.11XA Contusion of right lower leg, initial encounter (principal); L03.115 Cellulitis of right lower limb; I50.42 Chronic combined systolic (congestive) and diastolic (congestive) heart failure; I13.0 Hypertensive heart and chronic kidney disease with heart failure and stage 1 through stage 4 chronic kidney disease, or unspecified chronic kidney disease; E87.20 Acidosis, unspecified; N25.81 Secondary hyperparathyroidism of renal origin; N18.32 Chronic kidney disease, stage 3b; D50.9 Iron deficiency anemia, unspecified; E11.22 Type 2 diabetes mellitus with diabetic chronic kidney disease; N40.0 Benign prostatic hyperplasia without lower urinary tract symptoms; Z95.0 Presence of cardiac pacemaker; I49.5 Sick sinus syndrome; Z79.890 Hormone replacement therapy; Z79.4 Long term (current) use of insulin; I48.0 Paroxysmal atrial fibrillation; I25.10 Atherosclerotic heart disease of native coronary artery without angina pectoris; E03.9 Hypothyroidism, unspecified; E78.00 Pure hypercholesterolemia, unspecified; W20.8XXA Other cause of strike by thrown, projected or falling object, initial encounter; Z95.5 Presence of coronary angioplasty implant and graft
CPT/HCPCS: 73590; 80048; 80053; 82962; 83036; 83605; 85025; 96374; 97162; 99285